=== PATIENT | male | born 1995 | race Caucasian/White ===

== ENCOUNTER 2017-06-09 17:46 | Emergency (ER) | payer BC, SELFPAY ==
[2017-06-09 18:21] LABS: #Basophils 0.1 thou/uL (0.0-0.2); #Lymphocytes 1.1 thou/uL (1.20-3.40); #Monocytes 0.9 thou/uL (0.11-0.59); #Neutrophils 5.6 thou/uL (1.40-6.50); %Basophils 0.8 % (0.0-1.0); %Eosinophils 0.5 % (0.0-10.0); %Lymphocytes 14.1 % (21.0-51.0); %Monocytes 11.6 % (0.0-10.0); %Neutrophils 73.1 % (42.0-75.0); Hemoglobin 14.6 g/dL (14.0-18.0); Mean Corpuscular HGB CONC 35.3 g/dL (32.0-36.0); Mean Corpuscular Hemoglobin 31.3 pg (27.0-31.0); Mean Corpuscular Volume 88.7 fl (80.0-94.0); Platelet Count 126 thou/uL (130-400); RBC Distribution Width 10.2 % (11.5-14.5); Red Blood Cell (RBC) Count 4.68 mill/uL (4.70-6.10); White Blood Cell (WBC) Count 7.6 thou/uL (4.8-10.8)
[2017-06-09 18:36] LABS: ALT (SGPT) 10 U/L (8-55); AST (SGOT) 18 U/L (5-34); Albumin 4.3 g/dL (3.5-5.0); Alkaline Phosphatase 60 U/L (40-150); Anion Gap 15 mmol/L (10-20); BUN (Urea Nitrogen) 11 mg/dL (8.9-20.6); Bilirubin, Total 0.4 mg/dL (0.2-1.2); Calc. Creatinine Clearance 0 mL/min (70-130); Calcium 9.1 mg/dL (7.8-10.44); Carbon Dioxide 23 mmol/L (22-29); Chloride 103 mmol/L (98-107); Estimated GFR-MDRD Greater than 90; Globulin 3.3 g/dL (2.4-3.5); Glucose 92 mg/dL (70-105); Lipase 18 U/L (8-78); Potassium 3.8 mmol/L (3.5-5.1); Protein, Total 7.6 g/dL (6.0-8.3); Sodium 137 mmol/L (136-145)
[2017-06-09 18:37] LABS: CKMB 0.2 ng/mL (0-6.6); Troponin I Less than 0.010 ng/mL (< 0.028)
[2017-06-09] MEDS ORDERED: cefTRIAXone\\ROCEPHIN 2 GM VIAL ONE ×2 (18:44→18:48)
[2017-06-09] MEDS ORDERED: Sodium Chloride 0.9% 100 ML ONE (18:45)
[2017-06-09] MEDS ORDERED: Ondansetron HCl/PF 4 MG/2 ML Vial ONE (18:56)
--- NOTE | 2017-06-09 19:06 | RAD ---
PA AND LATERAL CHEST X-RAY 06/09/17 HISTORY: Fever and cough. COMPARISON: None available. FINDINGS: There is patchy increased interstitial opacities seen in the right lower lobe worrisome for pneumonia or aspiration and pneumonitis. The left lung is clear. Cardiac silhouette and pulmonary vasculature are within normal limits. Osseous structures are intact. IMPRESSION: Right lower lobe pneumonia. Followup to resolution is recommended. Aspiration pneumonitis is a differ ential consideration. POS: [facility]
== END 2017-06-09 19:57 | disposition home or self-care (01) ==
LOC: SCSER 17:46
DX: J18.9 Pneumonia, unspecified organism (principal); F41.9 Anxiety disorder, unspecified; F31.9 Bipolar disorder, unspecified; F17.210 Nicotine dependence, cigarettes, uncomplicated
CPT/HCPCS: 71046; 80053; 82553; 83605; 83690; 84484; 85025; 93005; 96361; 96365; 96375; J0696; J2405; J7050

== ENCOUNTER 2018-04-12 12:16 | Observation (INO) | payer BC, OTHER ==
[2018-04-12] MEDS ORDERED: Lidocaine 1% PF 5 ML VIAL ONE ×3 (12:33→14:19)
[2018-04-12] MEDS ORDERED: Sodium Chloride 0.9% 0 ML ONE (12:53)
[2018-04-12] MEDS ORDERED: CEFAZOLIN 1 GM VIAL ONE (12:53)
--- NOTE | 2018-04-12 12:56 | RAD ---
THREE VIEWS LEFT HAND: Comparison: None. History: Chain saw injury with laceration of the left second digit. FINDINGS: Three views of the left hand shows no evidence of acute fracture or dislocation. No radiopaque foreig n body is seen. No degenerative changes are present. IMPRESSION: No evidence of acute osseous abnormality. POS: [facility]
[2018-04-12] MEDS ORDERED: Morphine 4 MG/ML VIAL ONE (13:06)
[2018-04-12] MEDS ORDERED: Ondansetron PF 4 MG/2 ML Vial ONE (14:19)
[2018-04-12] MEDS ORDERED: Dexamethasone 20 MG/5 ML VIAL ONE (14:19)
[2018-04-12] MEDS ORDERED: ePHEDrine/0.9% NaCl/PF SYRINGE 50 mg/10 ml ONE (14:19)
[2018-04-12] MEDS ORDERED: PROPOFOL 200 MG/20 ML VIAL ONE (14:19)
[2018-04-12] MEDS ORDERED: Ketorolac Tromethamine 30 MG/ML VIAL ONE (14:19)
[2018-04-12] MEDS ORDERED: PHENYLEPHRINE-NS 100 MCG/ML 10 ML SYRINGE ONE (14:19)
[2018-04-12] MEDS ORDERED: Fentanyl 100 MCG/2 ML VIAL ONE ×2 (16:22→18:27)
[2018-04-12] MEDS ORDERED: CEFAZOLIN 2 GM/50 ML BAG ONE (16:40)
[2018-04-12] MEDS ORDERED: Acetaminophen/Codeine 30-300mg Tablet PO PRN ×2 (16:56)
[2018-04-12] MEDS ORDERED: Morphine 2 MG/ML SYRINGE IVP PRN (16:56)
[2018-04-12] MEDS ORDERED: traMADol HCl 50 MG TAB PO PRN ×2 (16:56)
[2018-04-12] MEDS ORDERED: RENALLY ADJUST ABX FS SCH (17:00)
[2018-04-12] MEDS ORDERED: CEFAZOLIN/Water 2 GM/20 ML SYRINGE SLOW IVP SCH (17:00)
[2018-04-12] MEDS ORDERED: Sodium Chloride 0.9% 10 ML ONE (17:05)
[2018-04-12] MEDS ORDERED: Ondansetron HCl/PF 4 MG/2 ML Vial IVP PRN (17:22)
[2018-04-12] MEDS ORDERED: Promethazine HCl 25 MG/ML VIAL IM PRN (17:22)
[2018-04-12] MEDS ORDERED: Meperidine HCl/PF 25 MG/ML VIAL SLOW IVP PRN (17:22)
[2018-04-12] MEDS ORDERED: Promethazine HCl 25 MG/ML VIAL SLOW IVP PRN (17:22)
[2018-04-12] MEDS ORDERED: Bupivacaine PF 0.5% 30 ML VIAL ONE (17:23)
[2018-04-12] MEDS: Ketorolac Tromethamine 30 MG/ML VIAL IVP SCH ×2 (19:53→23:18)
[2018-04-12] MEDS ORDERED: Aspirin 81 mg Enteric Coated Tablet PO SCH (21:00)
[2018-04-12] MEDS ORDERED: Aripiprazole 15 MG TAB PO SCH (21:15)
[2018-04-13] MEDS ORDERED: CEFAZOLIN 2 GM/50 ML-DEXTROSE 2 GM in Premix Bag 1 BAG IVPB SCH (01:00)
[2018-04-13 04:54] VITALS: BMI 26.6
[2018-04-13] MEDS: Ketorolac Tromethamine 30 MG/ML VIAL IVP SCH (05:34)
[2018-04-13 05:49] LABS: #Lymphocytes 1.3 thou/uL (1.20-3.40); #Monocytes 0.9 thou/uL (0.11-0.59); #Neutrophils 11.3 thou/uL (1.40-6.50); %Basophils 0.1 % (0.0-1.0); %Eosinophils 0.1 % (0.0-10.0); %Lymphocytes 9.9 % (21.0-51.0); %Monocytes 6.9 % (0.0-10.0); Hemoglobin 14.9 g/dL (14.0-18.0); Mean Corpuscular HGB CONC 32.2 g/dL (32.0-36.0); Mean Corpuscular Hemoglobin 30.9 pg (27.0-31.0); Mean Corpuscular Volume 95.9 fL (78.0-98.0); Mean Platelet Volume 7.4 fL (7.4-10.4); Platelet Count 187 thou/uL (130-400); RBC Distribution Width 11.4 % (11.5-14.5); Red Blood Cell (RBC) Count 4.83 mill/uL (4.70-6.10); White Blood Cell (WBC) Count 13.6 thou/uL (4.8-10.8)
[2018-04-13 08:28] VITALS: BP 111/67; TEMP 98.1
[2018-04-13] MEDS ORDERED: FLUoxetine HCl 20 MG CAP PO SCH (09:00)
--- NOTE | 2018-04-13 14:19 | OP ---
DATE OF SURGERY: 04/12/2018 PREOPERATIVE DIAGNOSIS: Left dorsal hand laceration with laceration of extensor tendon to index fing er. POSTOPERATIVE DIAGNOSES: 1. Left dorsal hand laceration with laceration of extensor tendon to index finger. 2. Traumatic arthrotomy, left index finger MCP. PROCEDURES: 1. Repair of extensor tendon, left index finger with reconstruction of extensor valenzuela. 2. Irrigation and debridement of open left index finger laceration. ANESTHESIA: General. SURGEON: Lisandro Ortega M.D. TOURNIQUET TIME: 37 minutes at 250 mmHg. ESTIMATED BLOOD LOSS: 5 mL IMPLANTS: None. DRAINS: None. SPECIMEN: None. OUTCOME: Repair of extensor tendon index finger. INDICATIONS: Patient is a 22-year-old gentleman status post accidental self-inflicted chain saw inju ry to the dorsal aspect of his left dominant hand. This laceration goes through skin and does involv e the extensor tendon with inability to extend the finger at the metacarpophalangeal joint. After di scussion with patient including risks and benefits, we decided to proceed with irrigation, debridemen t and repair. Informed consent has been obtained. I believe all questions answered. In the emergency room, the patient was given 2 grams of Ancef as well as some gentamicin and he does report that he is just 2 years out from his tetanus booster. PROCEDURE: The patient was brought to the operating room and timeout performed followed by induction of general anesthesia. Next, patient was positioned supine on the OR table with the left hand on an arm board. A sterile prep and drape was then performed of the left upper extremity. The oblique tr aumatic incision centered over the metacarpophalangeal joint dorsally was extended slightly along the ulnar base of the index finger and proximally extending into the dorsal aspect of the thenar web spa ce. Once extended, the traumatic wound itself was freshened with a scalpel to remove some of the rou gh and irregular and devitalized skin edge. Next, the dissection was carried down deeper. The exten sor tendon was found to be transected completely at the level of the metacarpophalangeal joint with e xtensor valenzuela severely damaged as well with some soft tissue loss. Further inspection showed that it actually did penetrate the dorsal joint capsule as well. Next, inspection was performed and no obvio us foreign bodies were encountered. The wound was then irrigated with a liter of normal saline with bulb syringes with antibiotic irrigant added. Following the irrigation, repair was then performed using 4-0 Vicryl. The joint capsule was reapproximated and then the extensor tendon ends were fresh ened with a scalpel and then reapproximated without excessive tension using a modified Muniz suture and 4-0 nonabsorbable suture. Once repaired, the tendon did want to fall off to the ulnar side of arron vo hand given the damage to the extensor valenzuela, as such, using blunt dissection, some soft tissue arou nd the extensor valenzuela and incorporating the residual portion of the valenzuela was freed and then reconstruc leno such that it could be draped over the extensor tendon. This did result in extensor tendon that w as more centralized over the metacarpophalangeal joint of the index finger. This was repaired with 4 -0 Vicryl as well. At the completion of this, the wound again was irrigated and closed with 4-0 nylo n for the skin. A Xeroform gauze, Webril and volar extension splint was applied to the fingers and arron meza patient was transferred to recovery room in stable condition. It should be noted that prior to arron vo first incision, the limb was exsanguinated with Esmarch bandage, tourniquet inflated to 250 mmHg. The tourniquet was let down at the completion of dressing with a total time of 37 minutes. There we re no complications. He tolerated the procedure well.
[2018-04-13] MEDS ORDERED: Aripiprazole 15 MG TAB PO SCH (21:00)
== END 2018-04-13 11:25 | disposition home or self-care (01) ==
LOC: SCSER 12:16 → ERS 13:43 → SURG A 18:43
PROVIDERS: ADMIT Orthopaedic Surgery Hand Surgery; ATTEND Orthopaedic Surgery Hand Surgery
PROC: 0LQ80ZZ Repair Left Hand Tendon, Open Approach (ICD-10-PCS; principal; 2018-04-12)
DX: S66.321A Laceration of extensor muscle, fascia and tendon of left index finger at wrist and hand level, initial encounter (principal); S61.412A Laceration without foreign body of left hand, initial encounter; W29.3XXA Contact with powered garden and outdoor hand tools and machinery, initial encounter; Y99.0 Civilian activity done for income or pay
CPT/HCPCS: 36415; 85025; 96365; 96366; 96374; 96375; 96376; G0378; J0690; J1100; J1580; J1885; J2001; J2270; J2405; J2704; J3010; J3490; J7050; S0020

== ENCOUNTER 2019-02-20 17:07 | Inpatient (IN) | payer BC ==
[~2019-02-20 17:07] MED LIST: Dexamethasone 20 MG/5 ML VIAL ONE; Ketorolac Tromethamine 30 MG/ML VIAL ONE; Lidocaine 1% PF 5 ML VIAL ONE; Ondansetron PF 4 MG/2 ML Vial ONE; PROPOFOL 200 MG/20 ML VIAL ONE; Succinylcholine Chloride 20 MG/ML 10 ml SYRINGE FS ONE; ePHEDrine 50 MG/ML VIAL ONE
[2019-02-20] MEDS ORDERED: Ondansetron PF 4 MG/2 ML Vial ONE (17:12)
[2019-02-20] MEDS ORDERED: Fentanyl 100 MCG/2 ML VIAL ONE ×5 (17:12→22:24)
[2019-02-20] MEDS ORDERED: Ketamine 50 MG/ML (10ML VIAL) ONE (17:12)
--- NOTE | 2019-02-20 17:45 | RAD ---
Radiograph right foot 3 views: HISTORY: 23-year-old male status post crush injury to right foot FINDINGS: No fracture or dislocation. IMPRESSION: Negative.
[2019-02-20] MEDS ORDERED: Adacel (T-DAP) 0.5 ML SYRINGE ONE (17:47)
[2019-02-20] MEDS ORDERED: Lorazepam 2 MG/ML VIAL ONE (17:47)
[2019-02-20] MEDS ORDERED: Morphine 4 MG/ML VIAL ONE ×2 (17:47→20:13)
--- NOTE | 2019-02-20 17:52 | RAD ---
Radiograph right ankle 3 views: HISTORY: Acute crush injury FINDINGS: No fracture or dislocation. Ankle mortise congruent. IMPRESSION: No acute fracture.
--- NOTE | 2019-02-20 17:56 | RAD ---
Radiograph right leg tibia-fibula 2 views: HISTORY: Crush injury FINDINGS: No fracture of tibia or fibula. IMPRESSION: Negative
--- NOTE | 2019-02-20 18:34 | CT ---
CT RIGHT FOOT: Date: 02-20-19 Provided Clinical History: Pain status post injury. FINDINGS: There is a tiny osseous density at the lateral aspect of the base of the first metatarsal dorsally th at could reflect a small avulsion fracture. No additional fracture is evident. Alignment appears sonia omic. Joint spaces appear preserved. A small focus of soft tissue gas is noted adjacent to the cad librarian ior tibialis tendon anteriorly, the etiology and significance of which are uncertain. IMPRESSION: Possible small capsular avulsion fracture involving the dorsal base of the first metatarsal laterally . POS: [facility]
[2019-02-20] MEDS ORDERED: Milk Of Magnesia 30 ML UDCUP PO PRN (19:29)
[2019-02-20] MEDS ORDERED: Acetaminophen 325 MG TAB PO PRN (19:29)
[2019-02-20] MEDS ORDERED: CEFAZOLIN 2 GM in Premix Bag 1 BAG IVPB SCH (19:30)
[2019-02-20] MEDS ORDERED: Communication Order-Pharmacy FS SCH (19:30)
[2019-02-20] MEDS ORDERED: Neomycin-Polymyxin 1 ML AMP ONE (19:33)
[2019-02-20] MEDS ORDERED: HYDROmorphone 0.5 MG/0.5 ML SYRINGE ONE (20:11)
[2019-02-20] MEDS ORDERED: Midazolam HCl 2 mg/2 ml Vial ONE (20:13)
[2019-02-20] MEDS ORDERED: HYDROmorphone 2 MG/ML VIAL SLOW IVP PRN (21:31)
[2019-02-20] MEDS ORDERED: PACU-Morphine 4MG/ML VIAL SLOW IVP PRN (21:31)
[2019-02-20] MEDS ORDERED: Ondansetron HCl/PF 4 MG/2 ML Vial IVP PRN (21:31)
[2019-02-20] MEDS ORDERED: Promethazine HCl 25 MG/ML VIAL SLOW IVP PRN (21:31)
[2019-02-20] MEDS ORDERED: Promethazine HCl 25 MG/ML VIAL IM PRN (21:31)
[2019-02-20] MEDS: Ketorolac Tromethamine 30 MG/ML VIAL IVP SCH (23:17)
[2019-02-20] MEDS: Ondansetron PF 4 MG/2 ML Vial IV PRN (23:18)
[2019-02-21] MEDS: Morphine 4 MG/ML VIAL SLOW IVP PRN ×7 (00:55→20:58)
--- NOTE | 2019-02-21 01:20 | HP ---
CHIEF COMPLAINT: Right foot pain. HISTORY OF PRESENT ILLNESS: Mr. Batres is a 23-year-old male, who had his foot trapped between the bucket and cab of a skid steer tonight. He had a crushing injury. His foot was hyperextended. He had severe pain. He was taken to the emergency department after the injury. X-rays have been found to be negative for fracture of the foot or ankle, however, he has had concern for compartment syndrome. His pain has been severely out of proportion. He has received fentanyl, but has had little relief. He reports his pain is 10/10. He has had progressive swelling. PAST MEDICAL HISTORY: The patient denies active medical problems. PAST SURGICAL HISTORY: Previous left finger surgery for chainsaw injury. ALLERGIES: NO KNOWN DRUG ALLERGIES. MEDICATIONS: No active medications. SOCIAL HISTORY: The patient denies tobacco, alcohol, or drug use. Mother is at the bedside. X-rays of the foot, ankle, and tibia are negative for acute injury. There is also a CT scan which shows a small avulsion type fracture from the first MTP joint. PHYSICAL EXAMINATION: VITAL SIGNS: Stable. He is afebrile. He is normotensive, 98% on room air. GENERAL: He is alert, lying supine. He is under distress from pain. HEENT: Normocephalic, atraumatic. RESPIRATORY: Breathing comfortably. ABDOMEN: Soft, nontender, and nondistended. MUSCULOSKELETAL: The patient's right foot has significant swelling. There is tense skin. He has a blanched appearance to the skin. The second and third toes have poor capillary refill. He has normal sensation in the first toe with decreased sensation in the second, third, fourth, and fifth digits. Pulse over the dorsalis pedis is palpable and strong. Plantar foot is less swollen. He is able to gently flex and extend the toes, although this does cause significant pain. IMPRESSION: Right foot compartment syndrome, status post crush injury. PLAN: At this point, I think the patient does have a legitimate compartment syndrome of the foot. He will need to go to the operating room for compartment release. I will perform a two incision technique over the dorsal foot. He will continue to have adequate pain control. He will need to be monitored in the hospital. I will not plan to close the wounds tonight. He will need to go back to surgery in 2-3 days for wound closure. He is aware of risks which do include infection, wound complication, need for skin graft, chronic foot pain, nerve injury, and others. He wants to proceed. He will be n.p.o. until after surgery. Job ID: [id number]
[2019-02-21 02:17] VITALS: BMI 27.0
--- NOTE | 2019-02-21 02:33 | OP ---
DATE OF PROCEDURE: 02/20/2019 PROCEDURE PERFORMED: Right foot fasciotomy for compartment syndrome. PREOPERATIVE DIAGNOSIS: Right foot compartment syndrome. POSTOPERATIVE DIAGNOSIS: Right foot compartment syndrome. COMPLICATIONS: None. ESTIMATED BLOOD LOSS: Minimal. ANESTHESIA: General. IMPLANTS: None. INDICATIONS: Mr. Batres is a 23-year-old male, who had a crush injury to his foot. He was indicated for fasciotomy of the foot to restore blood flow and relieve the compartment pressures. Risks have been reviewed in detail. He has elected to proceed with the operation. DESCRIPTION OF PROCEDURE: Mr. Batres was identified in the preoperative holding area. His correct extremity was marked. He was carried to the operating room. He was positioned supine. General anesthesia was induced. A multidisciplinary time-out was performed. The right lower extremity was prepped and draped in sterile fashion. We began the procedure with two dorsal incisions. We made an incision and centered over the second metatarsal, as well as an incision centered over the fourth metatarsal. We dissected down through the subcutaneous tissues and obtained hemostasis. At this point, we bluntly spread with a hemostat in between the first and second, second and third, third and fourth, fourth and fifth as well as the medial and lateral compartments of the foot. We spread down to the plantar tissues. We evacuated a large hematoma. The swelling was released. The compartments were soft. We thoroughly irrigated with copious lavage. At this point, we applied a sterile dressing. We left the wounds open with plans to come back and close in approximately 3 days. The patient was taken to the recovery room in good condition. Job ID: [id number]
[2019-02-21 05:14] LABS: #Basophils 0.1 thou/uL (0.0-0.2); #Lymphocytes 0.9 thou/uL (1.20-3.40); #Monocytes 0.7 thou/uL (0.11-0.59); #Neutrophils 10.5 thou/uL (1.40-6.50); %Basophils 0.7 % (0.0-1.0); %Eosinophils 0.1 % (0.0-10.0); %Lymphocytes 7.2 % (21.0-51.0); %Monocytes 5.3 % (0.0-10.0); %Neutrophils 86.7 % (42.0-75.0); Hemoglobin 14.3 g/dL (14.0-18.0); Mean Corpuscular HGB CONC 34.1 g/dL (32.0-36.0); Mean Corpuscular Hemoglobin 32.7 pg (27.0-31.0); Mean Corpuscular Volume 95.9 fL (78.0-98.0); Mean Platelet Volume 7.1 fL (7.4-10.4); Platelet Count 188 thou/uL (130-400); RBC Distribution Width 11.1 % (11.5-14.5); Red Blood Cell (RBC) Count 4.39 mill/uL (4.70-6.10); White Blood Cell (WBC) Count 12.1 thou/uL (4.8-10.8)
[2019-02-21] MEDS: Ketorolac Tromethamine 30 MG/ML VIAL IVP SCH ×3 (05:59→17:06)
[2019-02-21] MEDS: Enoxaparin Sodium 30 MG/0.3 ML SYRINGE SC SCH (07:46)
[2019-02-21] MEDS: HYDROcodone/Acetaminophen 5/325 mg Tablet PO PRN ×2 (10:05→14:17)
--- NOTE | 2019-02-21 13:10 | PRG ---
DATE OF SERVICE: 02/21/2019 SUBJECTIVE: The patient is doing fine. Pain is controlled. He is improved from prior to surgery. He has some discomfort in the foot. He feels that his toes are more mobile. No complications overnight. No chest pain or shortness of breath. OBJECTIVE: VITAL SIGNS: Stable. The patient is afebrile. GENERAL: He is alert, lying supine, IN no apparent distress. Breathing comfortably. Right foot dressing is clean and dry and intact. He is able to gently flex and extend the toes. Less pain with passive motion. IMPRESSION: Right foot compartment syndrome, status post release. PLAN: At this point, the patient will continue to elevate the foot. He will have adequate pain control. He is going to have 24 hours of intravenous antibiotics. He will need DVT prophylaxis. He will be taken back to the operating room tomorrow afternoon for possible closure of the foot with repeat I and D. Job ID: [id number]
[2019-02-21] MEDS: CEFAZOLIN 2 GM in Premix Bag 1 BAG IVPB SCH ×2 (13:26→22:15)
[2019-02-21] MEDS: Ondansetron PF 4 MG/2 ML Vial IV PRN (17:57)
[2019-02-21] MEDS ORDERED: diphenhydrAMINE 50 MG/ML VIAL IVP PRN (21:25)
[2019-02-22] MEDS: Ketorolac Tromethamine 30 MG/ML VIAL IVP SCH (00:23)
[2019-02-22] MEDS: Morphine 4 MG/ML VIAL SLOW IVP PRN ×6 (06:09→20:03)
[2019-02-22] MEDS: HYDROcodone/Acetaminophen 5/325 mg Tablet PO PRN ×4 (07:37→22:43)
[2019-02-22] MEDS: Enoxaparin Sodium 30 MG/0.3 ML SYRINGE SC SCH (07:57)
[2019-02-22] MEDS: Ondansetron PF 4 MG/2 ML Vial IV PRN ×2 (16:39→22:43)
[2019-02-23] MEDS: Morphine 4 MG/ML VIAL SLOW IVP PRN ×3 (01:29→17:39)
[2019-02-23] MEDS: HYDROcodone/Acetaminophen 5/325 mg Tablet PO PRN ×3 (03:13→20:18)
[2019-02-23] MEDS: Enoxaparin Sodium 30 MG/0.3 ML SYRINGE SC SCH (09:32)
[2019-02-23] MEDS ORDERED: Ondansetron PF 4 MG/2 ML Vial ONE (09:45)
[2019-02-23] MEDS ORDERED: PROPOFOL 200 MG/20 ML VIAL ONE (09:45)
[2019-02-23] MEDS ORDERED: Lidocaine 1% PF 5 ML VIAL ONE (09:45)
[2019-02-23] MEDS ORDERED: Succinylcholine Chloride 20 MG/ML 10 ml SYRINGE FS ONE (09:45)
[2019-02-23] MEDS ORDERED: Fentanyl 100 MCG/2 ML VIAL ONE ×2 (12:46→14:24)
[2019-02-23] MEDS ORDERED: Ondansetron HCl/PF 4 MG/2 ML Vial IVP PRN (13:29)
[2019-02-23] MEDS ORDERED: Promethazine HCl 25 MG/ML VIAL SLOW IVP PRN (13:29)
[2019-02-23] MEDS ORDERED: Promethazine HCl 25 MG/ML VIAL IM PRN (13:29)
[2019-02-23] MEDS ORDERED: Bupivacaine PF 0.5% 30 ML VIAL ONE (13:34)
[2019-02-23] MEDS ORDERED: Promethazine HCl 25 MG/ML VIAL IM/IV PRN (16:17)
[2019-02-23] MEDS ORDERED: Promethazine HCl 12.5 MG in Sodium Chloride 0.9% 50 ML IVPB PRN (16:41)
[2019-02-23] MEDS: CEFAZOLIN 2 GM in Premix Bag 1 BAG IVPB SCH (20:18)
[2019-02-24] MEDS: HYDROcodone/Acetaminophen 5/325 mg Tablet PO PRN ×5 (00:50→20:31)
[2019-02-24] MEDS: CEFAZOLIN 2 GM in Premix Bag 1 BAG IVPB SCH ×2 (05:06→13:23)
[2019-02-24] MEDS: Enoxaparin Sodium 30 MG/0.3 ML SYRINGE SC SCH (08:05)
[2019-02-24] MEDS: Morphine 4 MG/ML VIAL SLOW IVP PRN ×3 (08:05→23:15)
[2019-02-24] MEDS: Gabapentin 300 MG CAP PO SCH ×3 (08:25→20:33)
--- NOTE | 2019-02-24 12:27 | OP ---
DATE OF PROCEDURE: 02/23/2019 PREOPERATIVE DIAGNOSIS: Open surgical incisions, right foot status post right foot fasciotomy. POSTOPERATIVE DIAGNOSIS: Open surgical incisions, right foot status post right foot fasciotomy. PROCEDURE PERFORMED: Closure of right anterior foot fasciotomies (14 cm). ANESTHESIA: General. REPACK ROOM WORKER: John Paul Christopher PA-C. TOURNIQUET TIME: Zero. ESTIMATED BLOOD LOSS: 5 mL. COMPLICATIONS: None. DRAINS: None. SPECIMEN: None. OUTCOME: Successful closure of skin wounds. INDICATIONS: The patient is a 23-year-old gentleman, who is status post right foot crush injury when his foot was run over by a skid steer tractor. The patient is now status post dorsal fasciotomies for foot compartment syndrome. He has had a sterile gauze and Xeroform dressing on his foot. The swelling has significantly lessened over the last 3 days and as such, the patient now taken back to the operating room for irrigation of this wound and anticipated closure of the fasciotomy skin. Informed consent has been obtained. I believe all questions have been answered. DESCRIPTION OF PROCEDURE: The patient was brought to the operating room, and a time-out performed followed by induction of general anesthesia. The patient was positioned supine on the OR table, and a sterile prep and drape was performed of the right lower extremity. Next, attention was placed first at the dorsolateral skin incision. This was loosely reapproximated with two 2-0 Vicryl subcutaneously. Once the skin edges were reapproximated, 2-0 Vicryl was also used to reapproximate the dorsal medial skin incision. This also was able to be brought together without further gapping of the lateral wound. Given this ability to reapproximate both incisions, this was followed by insertion of multiple interrupted nylon sutures bringing the 2 wounds into excellent approximation. At the completion of this, the skin still blanched. Dressing of Xeroform gauze, Webril, and Luis Miguel wrap was then applied to the foot, and then the patient was transferred to recovery room in stable condition. There were no complications. He tolerated the procedure well. Job ID: [id number]
[2019-02-24] MEDS: Morphine 2 MG/ML SYRINGE IVP PRN ×3 (15:34→21:17)
[2019-02-24] MEDS: Ketorolac Tromethamine 30 MG/ML VIAL IVP SCH (22:09)
[2019-02-25] MEDS: HYDROcodone/Acetaminophen 5/325 mg Tablet PO PRN ×4 (00:58→15:06)
[2019-02-25] MEDS: Ketorolac Tromethamine 30 MG/ML VIAL IVP SCH ×2 (05:30→14:16)
[2019-02-25] MEDS: Enoxaparin Sodium 30 MG/0.3 ML SYRINGE SC SCH (10:08)
[2019-02-25] MEDS: Gabapentin 300 MG CAP PO SCH ×2 (10:11→14:17)
[2019-02-25] MEDS: Ondansetron PF 4 MG/2 ML Vial IV PRN (12:40)
[2019-02-25 15:35] VITALS: BP 138/63; TEMP 97.4
== END 2019-02-25 15:20 | disposition home or self-care (01) | DRG 909 ==
LOC: ERS 17:07 → SURG A 20:06 → SDC/OP 20:18 → SURG A 22:30
PROVIDERS: ADMIT Orthopaedic Surgery; ATTEND Orthopaedic Surgery
PROC: 0KNV0ZZ Release Right Foot Muscle, Open Approach (ICD-10-PCS; 2019-02-20)
PROC: 0KNV0ZZ Release Right Foot Muscle, Open Approach (ICD-10-PCS; 2019-02-20)
PROC: 0KNV0ZZ Release Right Foot Muscle, Open Approach (ICD-10-PCS; 2019-02-20)
PROC: 0KNV0ZZ Release Right Foot Muscle, Open Approach (ICD-10-PCS; 2019-02-20)
PROC: 0KNV0ZZ Release Right Foot Muscle, Open Approach (ICD-10-PCS; 2019-02-20)
PROC: 0KNV0ZZ Release Right Foot Muscle, Open Approach (ICD-10-PCS; 2019-02-20)
PROC: 0JQQ0ZZ Repair Right Foot Subcutaneous Tissue and Fascia, Open Approach (ICD-10-PCS; principal; 2019-02-24)
DX: T79.A21A Traumatic compartment syndrome of right lower extremity, initial encounter (principal); F41.9 Anxiety disorder, unspecified; F31.9 Bipolar disorder, unspecified; F12.10 Cannabis abuse, uncomplicated; S97.81XA Crushing injury of right foot, initial encounter; F17.210 Nicotine dependence, cigarettes, uncomplicated; W33.19XA Accidental malfunction of other larger firearm, initial encounter; Y93.9 Activity, unspecified
CPT/HCPCS: 36415; 85025; 90471; 90715; 96361; 96374; 96375; 96376; J0690; J1100; J1170; J1200; J1650; J1885; J2001; J2060; J2250; J2270; J2405; J2550; J2704; J3010; J3490; S0020

== ENCOUNTER 2019-03-17 16:50 | Emergency (ER) | payer BC | END 2019-03-17 18:26 | disposition home or self-care (01) | LOC: SCSER 16:50 | DX: I99.8 Other disorder of circulatory system (principal); F41.9 Anxiety disorder, unspecified; F31.9 Bipolar disorder, unspecified; F17.210 Nicotine dependence, cigarettes, uncomplicated; Z71.6 Tobacco abuse counseling | CPT/HCPCS: 99406 ==

== ENCOUNTER 2021-07-04 08:47 | Emergency (ER) | payer BC, SELFPAY ==
[2021-07-04] MEDS ORDERED: Albuterol 200 PUFF (6.7GM INHALER) ONE (09:17)
[2021-07-04] MEDS ORDERED: predniSONE 20 MG TAB ONE (10:05)
[2021-07-04 18:46] LABS: SARS-CoV-2 PCR by NAA Not Detected (NotDetected)
== END 2021-07-04 10:25 | disposition home or self-care (01) ==
LOC: ERS 08:47
DX: J98.01 Acute bronchospasm (principal); F17.210 Nicotine dependence, cigarettes, uncomplicated; Z20.822 Contact with and (suspected) exposure to COVID-19
CPT/HCPCS: 71045; 94664; J7512; U0003; U0005

== ENCOUNTER 2021-10-27 07:39 | Emergency (ER) | payer BC, OTHER ==
[2021-10-27] MEDS ORDERED: Ketorolac Tromethamine 30 MG/ML VIAL ONE (08:59)
[2021-10-27] MEDS ORDERED: Bacitracin 1 PK ONE ×2 (10:11→10:22)
== END 2021-10-27 10:40 | disposition home or self-care (01) ==
LOC: ERS 07:39
DX: S61.211A Laceration without foreign body of left index finger without damage to nail, initial encounter (principal); F17.210 Nicotine dependence, cigarettes, uncomplicated; W26.8XXA Contact with other sharp object(s), not elsewhere classified, initial encounter
CPT/HCPCS: 96372; J1885

== ENCOUNTER 2022-07-20 15:59 | Emergency (ER) | payer SELFPAY | END 2022-07-20 17:24 | disposition left against medical advice (07) | LOC: ERS 15:59 | DX: Z53.29 Procedure and treatment not carried out because of patient's decision for other reasons (principal) ==